=== PATIENT | male | born 1955 | race Caucasian/White ===

== ENCOUNTER → 2016-09-28 | Outpatient (CLI) | payer OTHER ==
[2016-09-28 10:29] LABS: BUN 13 mg/dL (7-18)
[2016-09-28 10:30] LABS: GFR (ESTIMATED) 86 ML/MIN (>60)
== END ==
LOC: LAB 08:38
PROVIDERS: Internal Medicine Adolescent Medicine
DX: E11.9 Type 2 diabetes mellitus without complications (principal)

== ENCOUNTER → 2017-07-07 | Outpatient (CLI) | payer OTHER ==
--- NOTE | 2017-07-07 20:07 | RADIOLOGY REPORT PS360 ---
HIP LT 2-3V W/PELVIS IF PERFOR, SACROILIAC JOINTs HISTORY: LOW BACK PAIN,CHRONIC PAIN, Patient Age: 62 years: Male Ordering Physician: Brianna Lane APRN COMPARISON to IVP December 2007 TECHNIQUE. 2 views LEFT HIP along with AP PELVIS SI joints:. AP and both both oblique views SI joints LEFT HIP 2 views of the left hip reveal no fracture nor dislocation. Femoral head and neck are intact. The hip joint spaces well-maintained on left.. AP pelvis The study includes AP view of the pelvis. Iliac bones sacrum superior and inferior ramus appear intact AP view of the right hip on this study demonstrates a 18 mm cystic area within the bone at the superior subcapital region right hip.. This lucent bone lesion has a thin sclerotic margin supporting is benign nature. No expansion... In fact this can be seen on previous IVP study from 2007. No significant interval change in the interval supporting benign character as well. SI JOINTS SI joints Appear patent and intact bilaterally minor sclerosis inferior margin right SI joint appears reflect some degenerative changes here. No significant findings otherwise evident IMPRESSION -------- 1. Left hip intact unremarkable 2. SI joints intact only some mild sclerosis inferior right SI joint most likely reflecting minor degenerative changes. 3. Osseous pelvis appears stable and intact. 4. Stable 1.8 cm benign recent cystic type area is noted within the bone at the superior right femoral neck subcapital region.. (This is unchanged since an IVP from 2007 further supporting benign nature)
== END ==
LOC: RAD 10:38
DX: M54.5 Low back pain (principal); G89.29 Other chronic pain